=== PATIENT | male | born 1960 | race Two or more races ===

== ENCOUNTER 2025-01-24 07:57 | Inpatient (IN) | payer MEDICARE, OTHER ==
[~2025-01-24] VITALS: Ht 170.2 cm; Wt 78.9 kg
[2025-01-24] VITALS (37 sets, daily range): BP systolic 65–132; BP diastolic 44–80; TEMP 97–97.2; O2SAT 93–100
[~2025-01-24 07:57] MED LIST: DIVA500T2 PO
[2025-01-24] MEDS ORDERED: PROPOFOL 20 ML IV ONE (07:59)
[2025-01-24] MEDS: PROPOFOL 200 MG/20 ML VIAL IV ONE (08:18)
[2025-01-24] MEDS ORDERED: NALOXONE PREFILLED SYRINGE 2 MG/2 ML SYRINGE ONE (08:19)
[2025-01-24] MEDS: NALOXONE PREFILLED SYRINGE 2 MG/2 ML SYRINGE IV ONE (08:27)
[2025-01-24] MEDS: IV NS 0.9% 1,000 ML BAG IV ONE ×2 (08:30→09:00)
[2025-01-24] MEDS ORDERED: ASCO500T10 PO (08:37)
[2025-01-24] MEDS ORDERED: FAMO20TA80 PO (08:37)
[2025-01-24] MEDS ORDERED: MAGN400O6 PO (08:37)
[2025-01-24] MEDS ORDERED: OLAN2.5T3 PO (08:37)
[2025-01-24] MEDS ORDERED: LEVE500T20 PO (08:37)
[2025-01-24] MEDS ORDERED: DIVA125C5 PO (08:37)
[2025-01-24] MEDS ORDERED: NICO-762 TD (08:37)
[2025-01-24] MEDS ORDERED: BISA10SU11 RC (08:37)
[2025-01-24] MEDS ORDERED: POVI3780 TP (08:37)
[2025-01-24] MEDS ORDERED: METF-440 PO (08:37)
[2025-01-24] MEDS ORDERED: MULT-213 PO (08:37)
[2025-01-24] MEDS ORDERED: INSU100V39 SQ (08:37)
[2025-01-24] MEDS ORDERED: LEVO25TA7 PO (08:37)
[2025-01-24] MEDS ORDERED: ZINC57OI4 TP (08:37)
[2025-01-24 08:57] LABS: PLATELET COUNT (AUTO) 247 K/uL (150-450); RED BLOOD CELL COUNT(AUTO) 2.16 MIL/uL (4.5-6.0); RED CELL DISTRIBUTION WIDTH 16.6 % (11.5-15.0); WHITE BLOOD COUNT (AUTO) 29.2 K/uL (4.3-11.0)
[2025-01-24 08:58] LABS: CALCIUM, SERUM 6.9 mg/dL (8.5-10.1); CREATININE 1.6 mg/dL (0.6-1.3); SERUM AMMONIA 29 umol/L (11-32); SODIUM SERUM 127 mmol/L (136-145)
[2025-01-24] MEDS: PIPERACILLIN /TAZOBACTAM 3.375 G in IV D5W 50 ML IV ONE (09:00)
[2025-01-24 09:06] LABS: UREA NITROGEN, BLOOD 160 mg/dL (7-18)
[2025-01-24 09:07] LABS: INR 1.26 (0.91-1.10); LACTIC ACID 5.0 mmol/L (0.4-2.0)
[2025-01-24 09:10] LABS: ASPARTATE AMINOTRANSFERASE 21 U/L (15-37); TOTAL PROTEIN, SERUM 3.5 g/dL (6.4-8.2)
[2025-01-24] MEDS ORDERED: PANTOPRAZOLE 40 MG VIAL ONE (09:18)
[2025-01-24] MEDS ORDERED: PIPERACI/TAZO 3.375GM/D5W 50ML PB IV ONE (09:18)
[2025-01-24] MEDS ORDERED: ALBUMIN 25% 100 ML IV ONE (09:19)
[2025-01-24 09:28] LABS: ALCOHOL, BLOOD < 3 mg/dL (0-10)
[2025-01-24] MEDS: ALBUMIN 25% 12.5 GM/50 ML BOTTLE IV ONE (09:30)
[2025-01-24] MEDS: PANTOPRAZOLE 40 MG VIAL IV ONE (09:30)
[2025-01-24 09:47] LABS: BAND % (MANUAL) 2 % (0.0-5.0); LYMPHOCYTES % (MANUAL) 2 % (16-48); MONOCYTES % (MANUAL) 2 % (0-11.0); NEUTROPHILS % (MANUAL) 94 (42-76); PLATELET ESTIMATE ADEQUATE
[2025-01-24] MEDS ORDERED: IOHEXOL-300 100 ML VIAL IV ONE (10:18)
[2025-01-24] MEDS ORDERED: IV NS 0.9% 250 ML IV ONE (10:19)
[2025-01-24] MEDS ORDERED: CT SWABBABLE VALVE TRANS SET 1 EA INFUS.SET MC ONE (10:19)
[2025-01-24 10:54] LABS: ABG BASE EXCESS -6.2 mmol/L (-2.0-3.0); ABG OXYGEN SATURATION 89.6 % (94.0-98.0); ABG PCO2 39.0 mmHg (35.0-48.0); ABG PH 7.314 (7.350-7.450); ABG PO2 72.2 mmHg (83.0-108.0); ABG TOTAL HEMOGLOBIN 5.3 G/dL (13.5-17.5); FRACTIONATED INSPIRED OXYGEN 100.0 %; PEEP,BG 0 cm H2O; SET RATE, BG 16.0; SITE, ABG LEFT BRACHIAL; VT, ABG 500 mL
[2025-01-24 12:21] LABS: AMPHETAMINE, URINE NEGATIVE (NEGATIVE); APPEARANCE,URINE SLIGHTLY CLOUDY (CLEAR); BARBITURATE, URINE NEGATIVE (NEGATIVE); BENZODIAZEPINE, URINE NEGATIVE (NEGATIVE); BLOOD, URINE 3+ Ery/uL (NEGATIVE); CANNABINOID, URINE NEGATIVE (NEGATIVE); COCCAINE, URINE NEGATIVE (NEGATIVE); LEUKOCYTE ESTERASE ,URINE NEGATIVE (NEGATIVE); NITRITE, URINE NEGATIVE (NEGATIVE); OPIATE, URINE NEGATIVE (NEGATIVE); UGLUCOSE NEGATIVE (NEGATIVE)
[2025-01-24 12:48] LABS: ADD URINE CULTURE YES; COARSE GRANULAR CASTS,URINE Few /LPF (None Seen); SQUAMOUS EPITHELIAL CELL,UR Moderate /HPF (None Seen)
[2025-01-24] MEDS ORDERED: ACETAMINOPHEN 650 MG/SUPP.RECT RC PRN (13:30)
[2025-01-24] MEDS ORDERED: ONDANSETRON HCL/PF 4 MG/2 ML VIAL IVP PRN (13:30)
[2025-01-24] MEDS ORDERED: ALBUMIN 25% 12.5 GM/50 ML BOTTLE IV ONE (13:30)
[2025-01-24] MEDS ORDERED: NOREPINEPHRINE 8 MG in IV D5W 242 ML IV PRN (13:30)
[2025-01-24] MEDS ORDERED: DOSING PER PHARMACY-VANCOMYCIN IV XX PRN (13:30)
[2025-01-24] MEDS ORDERED: DOSE PER PHARMACY (MD SPECIFY MEDICATION) 1 EA IV PRN (13:30)
[2025-01-24] MEDS: NOREPINEPHRINE 8 MG in IV NS 0.9% 250 ML IV ONE (13:30)
[2025-01-24] MEDS: PROPOFOL 100 ML IV PRN (15:11)
[2025-01-24] MEDS: NOREPINEPHRINE 8 MG in IV D5W 242 ML IV PRN (15:13)
[2025-01-24] MEDS: IV D5/ 0.9% NACL 1,000 ML IV PRN (15:18)
[2025-01-24] MEDS: ALBUMIN 25% 25 GM in PREMIX 1 EA IV ONE (15:27)
[2025-01-24] MEDS: HYDROCORTISONE SOD SUCCINATE 100 MG/2 ML VIAL IV ONE (15:31)
[2025-01-24] MEDS: MEROPENEM 1 G in IV NS 0.9% 100 ML IV SCH ×2 (16:00→19:59)
[2025-01-24] MEDS: LEVETIRACETAM (500MG) 500 MG in IV NS 0.9% 100 ML IV SCH ×2 (17:00→20:32)
[2025-01-24] MEDS: VANCOMYCIN 1 GM in IV D5W 250ml IV ONE (17:02)
[2025-01-24 18:22] LABS: IRON, SERUM 13 ug/dl (50-175)
[2025-01-25] VITALS (97 sets, daily range): BP systolic 95–124; BP diastolic 48–76; TEMP 97.2–98.9; O2SAT 94–100
[2025-01-25 04:31] LABS: RED BLOOD CELL COUNT(AUTO) 2.13 MIL/uL (4.5-6.0); RED CELL DISTRIBUTION WIDTH 16.3 % (11.5-15.0); WHITE BLOOD COUNT (AUTO) 19.3 K/uL (4.3-11.0)
[2025-01-25 05:03] LABS: FIBRINOGEN ACTIVITY 375.0 Mg/dL (213-485); INR 1.24 (0.91-1.10); PLATELET COUNT (AUTO) 190 K/uL (150-450)
[2025-01-25 05:08] LABS: FREE KAPPA LT CHAINS SERUM 101.1 mg/L (3.3-19.4); FREE LAMBDA LT CHAIN SERUM 112.9 mg/L (5.7-26.3); KAPPA/LAMBDA RATIO SERUM 0.90 (0.26-1.65)
[2025-01-25 05:11] LABS: CALCIUM, SERUM 7.2 mg/dL (8.5-10.1); CREATININE 1.2 mg/dL (0.6-1.3); PHOSPHORUS 4.7 mg/dL (2.5-4.9); SODIUM SERUM 135.0 mmol/L (136-145)
[2025-01-25 05:24] LABS: UREA NITROGEN, BLOOD 132.0 mg/dL (7-18)
[2025-01-25 06:41] LABS: BAND % (MANUAL) 6 % (0.0-5.0); LYMPHOCYTES % (MANUAL) 2 % (16-48); NEUTROPHILS % (MANUAL) 92 (42-76); PLATELET ESTIMATE ADEQUATE
[2025-01-25 08:07] LABS: FOLIC ACID 13.0 ng/mL (>3.0); IMMUNOGLOBULIN A, SERUM 245 mg/dL (61-437); IMMUNOGLOBULIN M, SERUM 20 mg/dL (20-172)
[2025-01-25 08:26] LABS: ABG BASE EXCESS -7.4 mmol/L (-2.0-3.0); ABG OXYGEN SATURATION 92.5 % (94.0-98.0); ABG PCO2 30.1 mmHg (35.0-48.0); ABG PH 7.372 (7.350-7.450); ABG PO2 76.5 mmHg (83.0-108.0); ABG TOTAL HEMOGLOBIN 6.5 G/dL (13.5-17.5); FRACTIONATED INSPIRED OXYGEN 60.0 %; PEEP,BG 5 cm H2O; SET RATE, BG 16.0; SITE, ABG LEFT BRACHIAL; VT, ABG 500 mL
[2025-01-25] MEDS: PANTOPRAZOLE 40 MG VIAL IV SCH (09:14)
[2025-01-25] MEDS: VANCOMYCIN 750 MG in IV D5W 250 ML IV SCH (10:46)
[2025-01-25] MEDS ORDERED: SOD FERRIC GLUC 125 MG in IV NS 0.9% 100 ML IV SCH (14:00)
[2025-01-25 15:25] LABS: HIV-1/2 ANTIBODY NON REACTIVE (NONREACTIVE)
[2025-01-25] MEDS ORDERED: VANCOMYCIN HCL 1.25 GM in IV D5W 250 ML IV SCH (17:00)
[2025-01-25] MEDS ORDERED: OSMOLITE 1.2 CAL 1,000 ML LIQUID GT PRN (19:00)
[2025-01-25] MEDS ORDERED: GLUCERNA 1.2 1,000 ML BOTTLE NG PRN (21:00)
[2025-01-26] VITALS (92 sets, daily range): BP systolic 90–123; BP diastolic 53–72; TEMP 98–98.6; O2SAT 92–100
[2025-01-26 04:19] LABS: PLATELET COUNT (AUTO) 140 K/uL (150-450); RED BLOOD CELL COUNT(AUTO) 2.77 MIL/uL (4.5-6.0); RED CELL DISTRIBUTION WIDTH 16.3 % (11.5-15.0); WHITE BLOOD COUNT (AUTO) 22.4 K/uL (4.3-11.0)
[2025-01-26 04:47] LABS: FIBRINOGEN ACTIVITY 494.0 Mg/dL (213-485); INR 1.13 (0.91-1.10)
[2025-01-26 04:49] LABS: ASPARTATE AMINOTRANSFERASE 29.0 U/L (15-37); CALCIUM, SERUM 7.5 mg/dL (8.5-10.1); CREATININE 0.8 mg/dL (0.6-1.3); PHOSPHORUS 4.5 mg/dL (2.5-4.9); SODIUM SERUM 141.0 mmol/L (136-145); TOTAL PROTEIN, SERUM 4.4 g/dL (6.4-8.2)
[2025-01-26 05:08] LABS: UREA NITROGEN, BLOOD 98.0 mg/dL (7-18)
[2025-01-26 05:31] LABS: CREATINE KINASE, TOTAL 40.0 U/L (39-308)
[2025-01-26] MEDS: SOD FERRIC GLUC 125 MG in IV NS 0.9% 100 ML IV SCH (08:02)
[2025-01-26] MEDS ORDERED: IV NS 0.9% 250 ML IV ONE (10:30)
[2025-01-26] MEDS ORDERED: IOHEXOL-300 100 ML VIAL IV ONE (10:30)
[2025-01-26] MEDS: OSMOLITE 1.2 CAL 1,000 ML LIQUID GT PRN (17:28)
[2025-01-26 20:07] LABS: *HIV-1 RNA BY PCR <20 copies/mL (.)
[2025-01-26] MEDS: VANCOMYCIN HCL 1.25 GM in IV D5W 250 ML IV SCH (20:39)
[2025-01-26] MEDS: LEVETIRACETAM SOL (5 ML) 100 MG/ML UDC NG SCH (20:51)
[2025-01-27] VITALS (95 sets, daily range): BP systolic 94–135; BP diastolic 57–68; TEMP 97.5–98.6; O2SAT 91–98
[2025-01-27 04:56] LABS: PLATELET COUNT (AUTO) 113 K/uL (150-450); RED BLOOD CELL COUNT(AUTO) 2.71 MIL/uL (4.5-6.0); RED CELL DISTRIBUTION WIDTH 16.5 % (11.5-15.0); WHITE BLOOD COUNT (AUTO) 26.0 K/uL (4.3-11.0)
[2025-01-27 05:17] LABS: CALCIUM, SERUM 7.5 mg/dL (8.5-10.1); CREATININE 1.4 mg/dL (0.6-1.3); PHOSPHORUS 5.5 mg/dL (2.5-4.9); SODIUM SERUM 142.0 mmol/L (136-145)
[2025-01-27 05:25] LABS: UREA NITROGEN, BLOOD 103.0 mg/dL (7-18)
[2025-01-27] MEDS: PANTOPRAZOLE 40 MG/PACK PACK NG SCH (08:45)
[2025-01-27 19:25] LABS: RHEUMATOID FACTOR SCREEN NEGATIVE (NEGATIVE)
[2025-01-28] VITALS (93 sets, daily range): BP systolic 87–126; BP diastolic 52–72; TEMP 97.2–98.5; O2SAT 91–100
[2025-01-28 05:40] LABS: CALCIUM, SERUM 7.7 mg/dL (8.5-10.1); CREATININE 2.0 mg/dL (0.6-1.3); SODIUM SERUM 142.0 mmol/L (136-145)
[2025-01-28 06:02] LABS: UREA NITROGEN, BLOOD 108.0 mg/dL (7-18)
[2025-01-28 08:07] LABS: PTH, INTACT 161 pg/mL (15-65)
[2025-01-28 15:04] LABS: HIV-1/2 ANTIBODY NON REACTIVE (NONREACTIVE)
[2025-01-28 17:20] LABS: PLATELET COUNT (AUTO) 72 K/uL (150-450); RED BLOOD CELL COUNT(AUTO) 2.44 MIL/uL (4.5-6.0); RED CELL DISTRIBUTION WIDTH 17.3 % (11.5-15.0); WHITE BLOOD COUNT (AUTO) 20.2 K/uL (4.3-11.0)
[2025-01-28 18:47] LABS: BAND % (MANUAL) 3 % (0.0-5.0); LYMPHOCYTES % (MANUAL) 4 % (16-48); MONOCYTES % (MANUAL) 3 % (0-11.0); NEUTROPHILS % (MANUAL) 90 (42-76); PLATELET ESTIMATE DECREASED
[2025-01-29] VITALS (95 sets, daily range): BP systolic 83–119; BP diastolic 48–90; TEMP 96.7–97.7; O2SAT 90–98
[2025-01-29 03:07] LABS: HEPATITIS B CORE AB, TOTAL Negative (Negative); HEPATITIS B SURFACE AB (QUAL) Non Reactive (.)
[2025-01-29 05:09] LABS: PLATELET COUNT (AUTO) 73 K/uL (150-450); RED BLOOD CELL COUNT(AUTO) 2.47 MIL/uL (4.5-6.0); RED CELL DISTRIBUTION WIDTH 16.7 % (11.5-15.0); WHITE BLOOD COUNT (AUTO) 20.6 K/uL (4.3-11.0)
[2025-01-29 05:40] LABS: CALCIUM, SERUM 7.8 mg/dL (8.5-10.1); CREATININE 2.5 mg/dL (0.6-1.3); SODIUM SERUM 141.0 mmol/L (136-145)
[2025-01-29 05:56] LABS: UREA NITROGEN, BLOOD 128.0 mg/dL (7-18)
[2025-01-29 06:07] LABS: LYMPHOCYTES % (MANUAL) 5 % (16-48); MONOCYTES % (MANUAL) 3 % (0-11.0); NEUTROPHILS % (MANUAL) 92 (42-76); PLATELET ESTIMATE DECREASED
[2025-01-29] MEDS ORDERED: Z GUARD REMEDY 4 OZ OINT TP PRN (08:00)
[2025-01-29] MEDS: Z GUARD REMEDY 4 OZ OINT TP SCH (08:33)
[2025-01-29] MEDS: CLOTRIMAZOLE 1% 15 GM TUBE TP SCH (08:33)
[2025-01-29] MEDS: THERAHONEY GEL 1.5 OZ TUBE TP SCH (08:33)
[2025-01-29] MEDS: MUPIROCIN OINT 2% 22 GM TUBE NS SCH (11:43)
[2025-01-30] VITALS (98 sets, daily range): BP systolic 83–112; BP diastolic 47–67; TEMP 97–97.7; O2SAT 88–97
[2025-01-30 04:12] LABS: PLATELET COUNT (AUTO) 62 K/uL (150-450); RED BLOOD CELL COUNT(AUTO) 2.52 MIL/uL (4.5-6.0); RED CELL DISTRIBUTION WIDTH 17.4 % (11.5-15.0); WHITE BLOOD COUNT (AUTO) 18.6 K/uL (4.3-11.0)
[2025-01-30 04:53] LABS: CALCIUM, SERUM 7.6 mg/dL (8.5-10.1); CREATININE 3.3 mg/dL (0.6-1.3); SODIUM SERUM 142.0 mmol/L (136-145)
[2025-01-30 05:04] LABS: PHOSPHORUS 9.8 mg/dL (2.5-4.9); UREA NITROGEN, BLOOD 121.0 mg/dL (7-18)
[2025-01-30 05:50] LABS: BAND % (MANUAL) 4 % (0.0-5.0); LYMPHOCYTES % (MANUAL) 8 % (16-48); METAMYELOCYTES % 1 % (0-0); MONOCYTES % (MANUAL) 2 % (0-11.0); NEUTROPHILS % (MANUAL) 85 (42-76); PLATELET ESTIMATE DECREASED
[2025-01-30 12:07] LABS: *ANA ANTI-CENTROMERE B AB <0.2 AI (0.0-0.9); *ANA ANTI-DNA(DS) AB, QN <1 IU/mL (0-9); *ANA ANTI-JO-1 <0.2 AI (0.0-0.9); *ANA ANTICHROMATIN ANTIBODY <0.2 AI (0.0-0.9); *ANA RNP ANTIBODIES <0.2 AI (0.0-0.9); *ANA SJOGREN'S ANTI-SS-A <0.2 AI (0.0-0.9); *ANA SJOGREN'S ANTI-SS-B <0.2 AI (0.0-0.9); *ANAANTI-SCLERODERMA-70 AB <0.2 AI (0.0-0.9); *ANASMITH AB <0.2 AI (0.0-0.9)
[2025-01-30] MEDS: Sodium Bicarbonate 100 MEQ in IV D5/0.45 NACL 1,000 ML IV SCH (17:32)
[2025-01-30] MEDS: SODIUM ZIRCONIUM CYCLOSILICATE 10 GM POWD.PACK PO SCH (17:56)
[2025-01-30] MEDS ORDERED: VANCOMYCIN HCL 1.25 GM in IV D5W 250 ML IV SCH (21:00)
[2025-01-31] VITALS (53 sets, daily range): BP systolic 58–132; BP diastolic 38–84; TEMP 96.4–97.6; O2SAT 80–98
[2025-01-31 04:12] LABS: FIBRINOGEN ACTIVITY 299.0 Mg/dL (213-485); INR 0.98 (0.91-1.10)
[2025-01-31 04:24] LABS: CALCIUM, SERUM 7.4 mg/dL (8.5-10.1); CREATININE 3.6 mg/dL (0.6-1.3); SODIUM SERUM 141.0 mmol/L (136-145)
[2025-01-31 04:41] LABS: RED BLOOD CELL COUNT(AUTO) 2.30 MIL/uL (4.5-6.0); RED CELL DISTRIBUTION WIDTH 17.9 % (11.5-15.0); WHITE BLOOD COUNT (AUTO) 17.6 K/uL (4.3-11.0)
[2025-01-31 04:43] LABS: PLATELET COUNT (AUTO) 47 K/uL (150-450)
[2025-01-31 04:52] LABS: UREA NITROGEN, BLOOD 126.0 mg/dL (7-18)
[2025-01-31 05:13] LABS: PHOSPHORUS 10.2 mg/dL (2.5-4.9)
[2025-01-31 06:07] LABS: BAND % (MANUAL) 5 % (0.0-5.0); LYMPHOCYTES % (MANUAL) 5 % (16-48); NEUTROPHILS % (MANUAL) 87 (42-76)
[2025-01-31 06:08] LABS: EOSINOPHILS % (MANUAL) 1 % (0-4); METAMYELOCYTES % 3 % (0-0); PLATELET ESTIMATE DECREASED
[2025-01-31 06:09] LABS: NUCLEATED RED BLOOD CELLS 1.0 /100WBC (0.0-0.0)
[2025-01-31] MEDS ORDERED: MUPIROCIN OINT 2% 22 GM TUBE NS SCH (09:00)
[2025-01-31] MEDS: Sodium Bicarbonate 100 MEQ in IV D5/0.45 NACL 1,000 ML IV SCH (09:31)
[2025-01-31] MEDS ORDERED: DC PROPOFOL WHEN EXTUBATED XX PRN (12:00)
[2025-01-31 12:07] LABS: *SPE A/G RATIO 1.0 (0.7-1.7); *SPE ALBUMIN 1.8 g/dL (2.9-4.4); *SPE ALPHA-1-GLOBULIN 0.3 g/dL (0.0-0.4); *SPE ALPHA-2-GLOBULIN 0.5 g/dL (0.4-1.0); *SPE BETA GLOBULIN 0.5 g/dL (0.7-1.3); *SPE GLOBULIN, TOTAL 1.8 g/dL (2.2-3.9); *SPE M-SPIKE 0.2 g/dL (Not Observed); *SPE PROTEIN TOTAL 3.6 g/dL (6.0-8.5); *SPEGAMMA GLOBULIN 0.3 g/dL (0.4-1.8)
[2025-01-31] MEDS: LORAZEPAM INJ 2 MG/ML VIAL IV PRN (12:40)
[2025-01-31] MEDS: MORPHINE SULFATE INJ 4 MG/ML DISP.SYRIN IM PRN (12:40)
[2025-01-31] MEDS ORDERED: VANCOMYCIN HCL 1.25 GM in IV D5W 250 ML IV SCH (21:00)
[2025-02-01 14:07] LABS: COCCIDIOIDES Abs, IgG,EIA 0.2 EIA Units (.); COCCIDIOIDES Abs, IgM,EIA 0.1 EIA Units (.)
== END 2025-01-31 12:53 | DRG 870 ==
LOC: ER 08:00 → ICU 13:21
PROVIDERS: ADMIT Nurse Practitioner Family; ATTEND Nurse Practitioner Acute Care
PROC: 5A1955Z Respiratory Ventilation, Greater than 96 Consecutive Hours (ICD-10-PCS; principal; 2025-01-24)
PROC: 0BH17EZ Insertion of Endotracheal Airway into Trachea, Via Natural or Artificial Opening (ICD-10-PCS; 2025-01-24)
PROC: 30233N1 Transfusion of Nonautologous Red Blood Cells into Peripheral Vein, Percutaneous Approach (ICD-10-PCS; 2025-01-24)
PROC: 02HV33Z Insertion of Infusion Device into Superior Vena Cava, Percutaneous Approach (ICD-10-PCS; 2025-01-24)
PROC: B548ZZA Ultrasonography of Superior Vena Cava, Guidance (ICD-10-PCS; 2025-01-24)
DX: A41.9 Sepsis, unspecified organism (principal); E43 Unspecified severe protein-calorie malnutrition; J15.69 Pneumonia due to other Gram-negative bacteria; J96.01 Acute respiratory failure with hypoxia; N17.0 Acute kidney failure with tubular necrosis; G93.41 Metabolic encephalopathy; R65.21 Severe sepsis with septic shock; I61.1 Nontraumatic intracerebral hemorrhage in hemisphere, cortical; K92.2 Gastrointestinal hemorrhage, unspecified; E87.20 Acidosis, unspecified; C34.90 Malignant neoplasm of unspecified part of unspecified bronchus or lung; C79.31 Secondary malignant neoplasm of brain; N39.0 Urinary tract infection, site not specified; Z99.11 Dependence on respirator [ventilator] status; E87.1 Hypo-osmolality and hyponatremia; D62 Acute posthemorrhagic anemia; J90 Pleural effusion, not elsewhere classified; Z66 Do not resuscitate; Z51.5 Encounter for palliative care; Z20.822 Contact with and (suspected) exposure to COVID-19; E03.9 Hypothyroidism, unspecified; Z86.73 Personal history of transient ischemic attack (TIA), and cerebral infarction without residual deficits; F31.9 Bipolar disorder, unspecified; E11.22 Type 2 diabetes mellitus with diabetic chronic kidney disease; Z79.899 Other long term (current) drug therapy; Z79.890 Hormone replacement therapy; Z79.84 Long term (current) use of oral hypoglycemic drugs; Z79.4 Long term (current) use of insulin; B96.89 Other specified bacterial agents as the cause of diseases classified elsewhere; N18.9 Chronic kidney disease, unspecified; E87.5 Hyperkalemia; E88.09 Other disorders of plasma-protein metabolism, not elsewhere classified; R57.1 Hypovolemic shock; G93.89 Other specified disorders of brain; I12.9 Hypertensive chronic kidney disease with stage 1 through stage 4 chronic kidney disease, or unspecified chronic kidney disease; L89.520 Pressure ulcer of left ankle, unstageable; K52.9 Noninfective gastroenteritis and colitis, unspecified; Y95 Nosocomial condition; L89.156 Pressure-induced deep tissue damage of sacral region; I70.0 Atherosclerosis of aorta; D69.6 Thrombocytopenia, unspecified; M89.8X9 Other specified disorders of bone, unspecified site; R60.9 Edema, unspecified
CPT/HCPCS: 31720; 36415; 36600; 70450-TC; 70470-TC; 71045-TC; 71260-TC; 76770-TC; 80048-TC; 80053-TC; 80076-TC; 80202-TC; 81001; 82140-TC; 82533; 82550-TC; 82607-TC; 82728-TC; 82784; 82803-TC; 83540-TC; 83605-TC; 83735-TC; 83970; 84100-TC; 84155; 84165; 84439-TC; 84443-TC; 84478-TC; 84484-TC; 85025-TC; 85027-TC; 85385-TC; 85396; 85610-TC; 85730-TC; 86225; 86235; 86334; 86431-TC; 86704; 86706; 86803; 86850-TC; 87040-TC; 87070-TC; 87081-TC; 87086-TC; 87205-TC; 87340; 87536; 87806; 87899; 93970-TC; 94002-TC; 94003-TC; 94640-TC; 94799-TC; 99082-TC; A4216; A4223; A6403; G0378; G0480; J1720; J1953; J2060; J2185; J2270; J2312; J2470; J2543; J2704; J2916; J3373; J3374; J3490; J7030; J7042; J7050; J7060; J7070; P9016; P9047; Q9967